=== PATIENT | female | born 1985 | race African-American/Black ===

== ENCOUNTER 2016-08-23 11:34 | Emergency (ER) | payer MEDICAID, OTHER ==
[2016-08-23 12:31] VITALS: BP 120/80
--- NOTE | 2016-08-23 12:37 | ER Document Report ---
ED Medical Screen (RME) - General Chief Complaint: Abdominal Pain Stated Complaint: STOMACH PAIN Time seen by provider: 12:36 Mode of Arrival: Ambulatory Information source: Patient Notes: 31-year-old female that is 5 weeks LMP 07/17/2016 is complaining of left flank and left lower quadrant abdominal pain. She had a test confirmed last week at a doctor's office. No vaginal bleeding. No dysuria frequency or urgency. TRAVEL OUTSIDE OF THE [place] IN LAST 30 DAYS: No - Related Data Allergies/Adverse Reactions: latex Allergy (Verified 08/23/16 11:45) Past Medical History Pulmonary Medical History: Reports: Hx Asthma Renal/ Medical History: Denies: Hx Peritoneal Dialysis Past Surgical History: Reports: Hx Orthopedic Surgery - bilat feet tendon & bone correction - Immunizations Hx Diphtheria, Pertussis, Tetanus Vaccination: Yes - 2014 Physical Exam - Vital signs Vitals: Temp Pulse Resp BP Pulse Ox 98.3 F 82 16 120/80 100 08/23/16 11:46 08/23/16 11:46 08/23/16 11:46 08/23/16 11:46 08/23/16 11:46 Course - Vital Signs Vital signs: Temp Pulse Resp BP Pulse Ox 98.3 F 82 16 120/80 100 08/23/16 11:46 08/23/16 11:46 08/23/16 11:46 08/23/16 11:46 08/23/16 11:46
[2016-08-23 13:18] LABS: APPEARANCE,URINE CLEAR; BILIRUBIN,URINE NEGATIVE (NEGATIVE); GLUCOSE, URINE 50 mg/dL (NEGATIVE); KETONES,URINE NEGATIVE (NEGATIVE); LEUKOCYTE ESTERASE,URINE NEGATIVE (NEGATIVE); NITRITE,URINE NEGATIVE (NEGATIVE); PROTEIN,URINE NEGATIVE (NEGATIVE); URINE SPECIFIC GRAVITY 1.024; UROBILINOGEN,URINE NEGATIVE mg/dL (<2.0)
--- NOTE | 2016-08-23 22:26 | ER Document Report ---
ED General - General Chief Complaint: Abdominal Pain Stated Complaint: STOMACH PAIN Mode of Arrival: Ambulatory Information source: Patient Notes: 31-year-old female 2 para 1 who is about 5 weeks presents with complaints of diarrhea. Patient notes symptoms have been ongoing intermittently for the past 3 days since eating [place] food. Patient denies any fevers or chills denies any nausea vomiting TRAVEL OUTSIDE OF THE [place] IN LAST 30 DAYS: No - HPI Onset: Other - 2 three-day duration Onset/Duration: Intermittent Quality of pain: Cramping Severity: Mild Pain Level: 1 Associated symptoms: Diarrhea Exacerbated by: Denies Relieved by: Denies Similar symptoms previously: No Recently seen / treated by doctor: No - Related Data Allergies/Adverse Reactions: latex Allergy (Verified 08/23/16 11:45) Past Medical History - General Information source: Patient - Social History Smoking Status: Never Smoker Cigarette use (# per day): No Chew tobacco use (# tins/day): No Smoking Education Provided: No Family History: Reviewed & Not Pertinent, Hypertension, Other - kidney disease Patient has suicidal ideation: No Patient has homicidal ideation: No Pulmonary Medical History: Reports: Hx Asthma Renal/ Medical History: Denies: Hx Peritoneal Dialysis Past Surgical History: Reports: Hx Orthopedic Surgery - bilat feet tendon & bone correction - Immunizations Hx Diphtheria, Pertussis, Tetanus Vaccination: Yes - 2014 Review of Systems - Review of Systems Notes: REVIEW OF SYSTEMS: CONSTITUTIONAL : Denies fever, chills, or sweats. Denies recent illness. EENT: Denies eye, ear, throat, or mouth pain or symptoms. Denies nasal or sinus congestion or discharge. Denies throat, tongue, or mouth swelling or difficulty swallowing. CARDIOVASCULAR: Denies chest pain. Denies palpitations or racing or irregular heart beat. Denies ankle edema. RESPIRATORY: Denies cough, cold, or chest congestion. Denies shortness of breath, difficulty breathing, or wheezing. GASTROINTESTINAL: Admits to diarrhea GENITOURINARY: Denies difficulty urinating, painful urination, burning, frequency, blood in urine, or discharge. FEMALE GENITOURINARY: Denies vaginal bleeding, heavy or abnormal periods, irregular periods. Denies vaginal discharge or odor. MUSCULOSKELETAL: Denies back or neck pain or stiffness. Denies joint pain or swelling. SKIN: Denies rash, lesions or sores. HEMATOLOGIC : Denies easy bruising or bleeding. LYMPHATIC: Denies swollen, enlarged glands. NEUROLOGICAL: Denies confusion or altered mental status. Denies passing out or loss of consciousness. Denies dizziness or lightheadedness. Denies headache. Denies weakness or paralysis or loss of use of either side. Denies problems with gait or speech. Denies sensory loss, numbness, or tingling. Denies seizures. PSYCHIATRIC: Denies anxiety or stress. Denies depression, suicidal ideation, or homicidal ideation. ALL OTHER SYSTEMS REVIEWED AND NEGATIVE. Dictation was performed using [employer] recognition software PHYSICAL EXAMINATION: GENERAL: Well-appearing, well-nourished and in no acute distress. HEAD: Atraumatic, normocephalic. EYES: Pupils equal round and reactive to light, extraocular movements intact, conjunctiva are normal. ENT: Nares patent, oropharynx clear without exudates. Moist mucous membranes. NECK: Normal range of motion, supple without lymphadenopathy LUNGS: Breath sounds clear to auscultation bilaterally and equal. No wheezes rales or rhonchi. HEART: Regular rate and rhythm without murmurs ABDOMEN: Soft, nontender, nondistended abdomen. No guarding, no rebound. No masses appreciated. Female : deferred Musculoskeletal: Normal range of motion, no pitting or edema. No cyanosis. NEUROLOGICAL: Cranial nerves grossly intact. Normal speech, normal gait. Normal sensory, motor exams PSYCH: Normal mood, normal affect. SKIN: Warm, Dry, normal turgor, no rashes or lesions noted. Physical Exam - Vital signs Vitals: Temp Pulse Resp BP Pulse Ox 98.3 F 82 16 120/80 100 08/23/16 11:46 08/23/16 11:46 08/23/16 11:46 08/23/16 11:46 08/23/16 11:46 Course - Re-evaluation Re-evalutation: 08/23/16 23:09 Ultrasound noted a 5 week 4 day , this would be consistent with the patient's presentation. Given that she does not have any vaginal bleeding or discharge or nausea vomiting and urinalysis notes no infection I believe she is stable for discharge patient is very happy with this plan After performing a Medical Screening Examination, I estimate there is LOW risk for ACUTE APPENDICITIS, BOWEL OBSTRUCTION, ACUTE CHOLECYSTITIS, PERFORATED DIVERTICULITIS, INCARCERATED HERNIA, PANCREATITIS, PELVIC INFLAMMATORY DISEASE, PERFORATED ULCER, ECTOPIC , or TUBO-OVARIAN ABSCESS, thus I consider the discharge disposition reasonable. Also, there is no evidence or peritonitis , sepsis, or toxicity. I have reevaluated this patient multiple times and no significant life threatening changes are noted. The patient and I have discussed the diagnosis and risks, and we agree with discharging home with close follow-up with the understanding that symptoms and presentations can change. We also discussed returning to the Emergency Department immediately if new or worsening symptoms occur. We have discussed the symptoms which are most concerning (e.g., bloody stool, fever, changing or worsening pain, vomiting) that necessitate immediate return. - Vital Signs Vital signs: Temp Pulse Resp BP Pulse Ox 98.3 F 82 16 120/80 100 08/23/16 11:46 08/23/16 11:46 08/23/16 11:46 08/23/16 11:46 08/23/16 11:46 - Laboratory Laboratory results interpreted by me: 08/23/16 08/23/16 12:48 12:48 Beta HCG, Quant 4322.70 H Urine Glucose (UA) 50 H Urine Ascorbic Acid 20 H - Diagnostic Test Radiology reviewed: Image reviewed, Reports reviewed - Five-week patient given report Discharge - Discharge Clinical Impression: Diarrhea Qualifiers: Diarrhea type: unspecified type Qualified Code(s): R19.7 - Diarrhea, unspecified Qualifiers: Weeks of gestation: less than 8 weeks Qualified Code(s): Z3A.01 - Less than 8 weeks gestation of Condition: Stable Disposition: HOME, SELF-CARE Instructions: Diarrhea, Nonspecific ([facility]) Referrals: SOWMYA RODRÍGUEZ PA-C [Primary Care Provider] - Follow up tomorrow
== END 2016-08-23 22:44 | disposition home or self-care (01) ==
LOC: ER 11:34
DX: O26.891 Other specified pregnancy related conditions, first trimester (principal); R19.7 Diarrhea, unspecified; O99.511 Diseases of the respiratory system complicating pregnancy, first trimester; J45.909 Unspecified asthma, uncomplicated; Z3A.01 Less than 8 weeks gestation of pregnancy; Z91.040 Latex allergy status
CPT/HCPCS: 36415; 76817; 81001; 84702; 86900; 86901; 87086; 93976; 99284

== ENCOUNTER → 2016-09-06 | Outpatient (CLI) | payer MEDICAID ==
[2016-09-06 12:01] LABS: APPEARANCE,URINE CLEAR; BILIRUBIN,URINE NEGATIVE (NEGATIVE); GLUCOSE, URINE 150 mg/dL (NEGATIVE); KETONES,URINE NEGATIVE (NEGATIVE); LEUKOCYTE ESTERASE,URINE NEGATIVE (NEGATIVE); NITRITE,URINE NEGATIVE (NEGATIVE); PROTEIN,URINE NEGATIVE (NEGATIVE); URINE SPECIFIC GRAVITY 1.024; UROBILINOGEN,URINE NEGATIVE mg/dL (<2.0)
[2016-09-06 12:21] LABS: ANION GAP 9 (5-19); BLOOD UREA NITROGEN 13 mg/dL (7-20); CALCIUM 9.3 mg/dL (8.4-10.2); CARBON DIOXIDE 25 mmol/L (22-30); CHLORIDE 103 mmol/L (98-107); CREATININE RESULT 0.62 mg/dL (0.52-1.25); GLUCOSE 82 mg/dL (75-110); POTASSIUM 4.3 mmol/L (3.6-5.0); SODIUM 136.5 mmol/L (137-145)
== END ==
LOC: OD 11:06
PROVIDERS: ATTEND Internal Medicine Nephrology
DX: Q61.3 Polycystic kidney, unspecified (principal)
CPT/HCPCS: 36415; 80048; 81001

== ENCOUNTER 2017-04-16 22:46 | Inpatient (IN) | payer MEDICAID ==
[2017-04-16] MEDS ORDERED: LIDOCAINE 1% INJ-PF (10 MG/ML) 30 ML SDV ONE (23:05)
[2017-04-16] MEDS ORDERED: GLYCERIN/WITCH HAZEL LEAF 1 EACH MED..PAD TP PRN (23:43)
[2017-04-16] MEDS ORDERED: OXYTOCIN IV PRN (23:43)
[2017-04-16] MEDS ORDERED: PSEUDOEPHEDRINE HCL 30 MG TABLET PO PRN (23:43)
[2017-04-16] MEDS ORDERED: DIBUCAINE 1% OINTMENT 28 GM TP PRN (23:43)
[2017-04-16] MEDS ORDERED: DIPH/PERTUSS(ACELL)/TETANUS VAC/PF 0.5 ML SYR (>=10YO) IM PRN (23:43)
[2017-04-16] MEDS ORDERED: NA PHOS,M-B/NA PHOS,DI-BA (ADULT) 133 ML ENEMA PR PRN (23:43)
[2017-04-16] MEDS ORDERED: ACETAMINOPHEN WITH CODEINE #3 TABLET PO PRN (23:43)
[2017-04-16] MEDS ORDERED: PROMETHAZINE HCL 25 MG TABLET PO PRN (23:43)
[2017-04-16] MEDS ORDERED: DIPHENHYDRAMINE HCL 25 MG CAPSULE PO PRN (23:43)
[2017-04-16] MEDS ORDERED: BENZOCAINE/MENTHOL AEROSOL SPRAY 56 ML TOP PRN (23:43)
[2017-04-16] MEDS ORDERED: ZOLPIDEM TARTRATE 5 MG TABLET PO PRN (23:43)
[2017-04-16] MEDS ORDERED: MAGNESIUM HYDROXIDE SUSP 30 ML UDCUP PO PRN (23:43)
[2017-04-16] MEDS ORDERED: PROMETHAZINE HCL 25 MG SUPP.RECT PR PRN (23:43)
[2017-04-16] MEDS ORDERED: ACETAMINOPHEN 650 MG SUPP.RECT PR PRN (23:43)
[2017-04-16] MEDS ORDERED: MEASLES,MUMPS&RUBELLA VACC/PF 0.5 ML VIAL SUBCUT PRN (23:43)
[2017-04-16] MEDS ORDERED: PROMETHAZINE HCL INJ 25 MG/1 ML VIAL IV PRN (23:43)
[2017-04-16] MEDS ORDERED: NORMAL SALINE IV PRN (23:43)
[2017-04-17 00:08] LABS: ABSOLUTE EOSINOPHILS # (AUTO) 0.2 10^3/uL (0.0-0.6); ABSOLUTE LYMPHOCYTES (AUTO) 2.8 10^3/uL (0.5-4.7); ABSOLUTE MONOCYTES (AUTO) 0.8 10^3/uL (0.1-1.4); ABSOLUTE NEUT (AUTO) 8.1 10^3/uL (1.7-8.2); BASOPHILS % (AUTO) 0.2 % (0-2); EOSINOPHILS % (AUTO) 1.7 % (0-6); HEMATOCRIT 39.4 % (36.0-47.0); LYMPHOCYTES % (AUTO) 23.2 % (13-45); MEAN CORPUSCULAR HEMOGLOBIN 27.5 pg (27.0-33.4); MEAN CORPUSCULAR HGB CONC 32.9 g/dL (32.0-36.0); MEAN CORPUSCULAR VOLUME 84 fl (80-97); MONOCYTES % (AUTO) 6.8 % (3-13); PLATELET COUNT 181 10^3/uL (150-450); RED BLOOD COUNT 4.72 10^6/uL (3.72-5.28); SEGMENTED NEUTROPHILS % (AUTO) 68.1 % (42-78); TOTAL CELLS COUNTED % (AUTO) 100 %; WHITE BLOOD COUNT 11.9 10^3/uL (4.0-10.5)
--- NOTE | 2017-04-17 01:20 | Admission Physical ---
Datetime Report Generated by CPN: 04/17/2017 01:20 ALLERGIES Medication Allergies: No Medication Allergies: latex (08/23/2016) Latex: Latex Allergies OBSTETRICAL HISTORY EDC: 04/23/2017 00:00 : 4 Para: 1 Term: 1 : 0 SAB: 1 IAB: 1 Ectopic: 0 Livin Cesareans: 0 VBACs: 0 Multiple Births: 0 Gestational Diabetes: No Rh Sensitization: No Incompetent Cervix: No ODETTE: No Infertility: No ART Treatment: No Uterine Anomaly: No IUGR: No Hx Previous C/S: No Macrosomia: No Hx Loss/Stillborn: No PIH: No Hx : No Placenta Previa/Abruption: No Depression/PP Depression: No PTL/PROM: No Post Hemorrhage: No Obstetrical History Comments: G1: 2004 EAB G2: 2005 SAB G3: 38 week 7 lb 12 oz G4: Current SEE RECORDS Alcohol: No Marijuana : No Cocaine: No Other Illicit Drugs: No Cigarettes: Never Smoker. [id number] MEDICAL HISTORY Diabetes: No Blood Transfusion: No Pulmonary Disease (Asthma, TB): Yes Breast Disease: No Hypertension: No Skiagrapher Surgery: No Heart Disease: No Hosp/Surgery: Yes Autoimmune Disorder: No Anesthetic Complications: No Kidney Disease: No Abnormal Pap Smear: No Neuro/Epilepsy: Yes Psychiatric Disorders: No Other Medical Diseases: No Hepatitis/Liver Disease: No Significant Family History: No Varicosities/Phlebitis: No Trauma/Violence : No Thyroid Dysfunction: No Medical History Comments: polycystic kidney disease, asthma- albuterol PRN, bilateral foot corrective surgery 2009 INFECTIOUS HISTORY Gonorrhea: No Genital Herpes: No Chlamydia: No Tuberculosis: No Syphilis: No Hepatitis: No HIV/AIDS Exposure: No Rash or Viral Illness: No HPV: No PHYSICAL EXAM General: Normal HEENT: Normal Neurologic: Normal Thyroid: Normal Heart: Normal Lungs: Normal Back: Normal Abdomen: Normal Extremities: Normal DTRs: Normal Physical Exam Comments: 31 yo precipitious delivery at arrival to [facility] Placenta delivered spontaneous complete. There was a second degree vaginal laceration that was reparied. There was no bleeding, uterus was firm. Vital Signs: Reviewed PLANS FOR LABOR AND DELIVERY Labor and Delivery: None Pain Management: None Feeding Preference: Breast Benefit of Breast Feed Discussed: Yes Circumcision: Yes INFORMED CONSENT Signature: with User ID: [email or web address]
[2017-04-17] MEDS: ACETAMINOPHEN WITH CODEINE #3 TABLET PO PRN (04:31)
[2017-04-17] MEDS ORDERED: IBUPROFEN 800 MG TABLET PO SCH (06:00)
[2017-04-17 07:06] LABS: HEMATOCRIT 36.3 % (36.0-47.0); HEMOGLOBIN 11.8 g/dL (12.0-15.5); MEAN CORPUSCULAR HEMOGLOBIN 27.4 pg (27.0-33.4); MEAN CORPUSCULAR HGB CONC 32.5 g/dL (32.0-36.0); MEAN CORPUSCULAR VOLUME 85 fl (80-97); PLATELET COUNT 166 10^3/uL (150-450); RED CELL DISTRIBUTION WIDTH 14.3 % (11.5-14.0); WHITE BLOOD COUNT 12.9 10^3/uL (4.0-10.5)
--- NOTE | 2017-04-17 09:39 | PDOC PROGRESS REPORT ---
Subjective-OB Subjective: Post Delivery Day: 31 year old. Denies any needs at this time. reports without difficulty, tolerating diet, pain controlled with current meds, bleeding normal. Reports bleeding was heavier overnight but not now. Physical Exam (OB) Vital Signs: Temp Pulse Resp BP Pulse Ox 97.7 F 77 15 130/64 H 98 04/17/17 09:00 04/17/17 09:00 04/17/17 09:00 04/17/17 09:00 04/17/17 09:00 Intake & Output 04/16/17 04/17/17 04/18/17 06:59 06:59 06:59 Intake Total 500 Balance 500 Weight 68 kg - Abdomen Description: Soft, Round Hernia Present: No Fundal Description: Firm, Midline Fundal Height: u/u - u/2 - Extremities Lower extremities: Essie's sign - neg Calf: Normal, Nontender Objective-Diagnostic Laboratory: 04/17/17 06:46 04/16/17 04/16/17 04/17/17 22:49 22:49 06:46 WBC 11.9 H 12.9 H RBC 4.72 4.30 Hgb 13.0 11.8 L Hct 39.4 36.3 MCV 84 85 MCH 27.5 27.4 MCHC 32.9 32.5 RDW 14.0 14.3 H Plt Count 181 166 Seg Neutrophils % 68.1 Lymphocytes % 23.2 Monocytes % 6.8 Eosinophils % 1.7 Basophils % 0.2 Absolute Neutrophils 8.1 Absolute Lymphocytes 2.8 Absolute Monocytes 0.8 Absolute Eosinophils 0.2 Absolute Basophils 0.0 Blood Type O POSITIVE Antibody Screen NEGATIVE Assessment and Plan(PN) - Time Spent with Patient Time with patient: Less than 15 minutes Medications reviewed and adjusted accordingly: Yes - Disposition Anticipated Discharge: Home Within: within 24 hours
[2017-04-17] MEDS: DOCUSATE SODIUM 100 MG CAPSULE PO SCH ×2 (09:53→18:58)
[2017-04-17] MEDS: SENNOSIDES/DOCUSATE 8.6-50 MG 1 EACH TABLET PO SCH (09:53)
[2017-04-17] MEDS: FAMOTIDINE 20 MG TABLET PO SCH ×2 (09:53→23:47)
[2017-04-17] MEDS: FERROUS SULFATE 325 MG TABLET PO SCH ×2 (09:54→18:58)
[2017-04-17] MEDS: PRENATAL VITAMIN W DHA CAPSULE PO SCH (09:56)
[2017-04-18 08:17] VITALS: BP 131/72
[2017-04-18] MEDS: ACETAMINOPHEN WITH CODEINE #3 TABLET PO PRN (08:22)
--- NOTE | 2017-04-18 09:19 | PDOC DISCHARGE SUMMARY ---
Final Diagnosis Discharge Date: 04/18/17 - Final Diagnosis (1) Vaginal delivery Is this a current diagnosis for this admission?: Yes Discharge Data - Discharge Medication Home Medications: Albuterol Sulfate [Albuterol Sulfate Hfa] 8.5 gm IH ASDIR PRN 05/11/13 Vits96/Iron Fum/Folic [ Tablet] 1 each PO DAILY 11/29/14 Acetaminophen [Tylenol 650 mg Supp] 650 mg PO Q4HP PRN supp.rect 04/18/17 - Diagnosis Test Laboratory: Temp Pulse Resp BP Pulse Ox 98.4 F 81 18 131/72 H 99 04/18/17 08:16 04/18/17 08:16 04/18/17 08:16 04/18/17 08:16 04/18/17 08:16 04/16/17 04/17/17 22:49 06:46 RBC 4.72 4.30 Hgb 13.0 11.8 L Hct 39.4 36.3 - Discharge information/Instructions Discharge Activity: Balance Activity w/Rest, Pelvic Rest Discharge Diet: Regular Disposition: HOME, SELF-CARE Follow up with: [facility] in: 4, Weeks
[2017-04-18] MEDS: DOCUSATE SODIUM 100 MG CAPSULE PO SCH (10:13)
[2017-04-18] MEDS: SENNOSIDES/DOCUSATE 8.6-50 MG 1 EACH TABLET PO SCH (10:14)
[2017-04-18] MEDS: PRENATAL VITAMIN W DHA CAPSULE PO SCH (10:14)
[2017-04-18] MEDS: FERROUS SULFATE 325 MG TABLET PO SCH (10:14)
[2017-04-18] MEDS: FAMOTIDINE 20 MG TABLET PO SCH (11:19)
--- NOTE | 2017-04-29 10:54 | Delivery Summary ---
Del Sum A-C Datetime Report Generated by CPN: 04/29/2017 10:54 DELIVERY PERSONNEL DELIVERY PERSONNEL: [id number] Labor and Delivery Nurse:: Ina Ontiveros RNbottle filler Nurse:: Hoda López RN Freight Agent:: Sharmaine Melo RN Nursery Nurse:: Mariam Carey RN Nursery Nurse:: Juliette Perrin RN Conveyancer/ALODIZE MACHINE HELPER: Tessa Pope, Additional Personnel: : Emilee Medina RN MATERNAL INFORMATION Delivery Anesthesia: None Medications After Delivery: Pitocin Bolus-Please Comment Meds After Delivery Comment: 20 units pitocin after placenta delivery Estimated Blood Loss (ml): 300 Maternal Complications: Precipitous Labor (<3hrs) Other Maternal Complications: Precipitous vaginal delivery with placenta LABOR SUMMARY EDC: 04/23/2017 00:00 No. Babies in Womb: 1 Attempted: No Labor Anesthesia: None LABOR INFORMATION Reason for Induction: Not Applicable Onset of Labor: 04/16/2017 20:00 Complete Dilatation: 04/16/2017 22:32 Oxytocin: N/A Group B Beta Strep: negative Steroids Given: None Reason Steroids Not Administered: Not Applicable MEMBRANES Membranes Rupture Method: Spontaneous Rupture of Membranes: 04/16/2017 22:47 Length of Rupture (hr): 0.12 Amniotic Fluid Color: Clear Amniotic Fluid Amount: Moderate STAGES OF LABOR Stage 1 hr: 2 Stage 1 min: 32 Stage 2 hr: 0 Stage 2 min: 22 Stage 3 hr: 0 Stage 3 min: 4 Total Time in Labor hr: 2 Total Time in Labor min: 58 VAGINAL DELIVERY Laceration #1: Vaginal Laceration Extension #1: Second Degree Laceration Repair: Yes Laceration Repair Note: Midline second degree vaginal laceration repaired with 3-0 Chromic CSECTION DELIVERY Primary Indication: N/A Secondary Indication: N/A CSection Incidence: N/A Labor: N/A Elective: N/A CSection Incision: N/A BABY A INFORMATION Infant Delivery Date/Time: 04/16/2017 22:54 Method of Delivery: Vaginal Born in Route : No : N/A Forceps: N/A Vacuum Extraction: N/A Shoulder Dystocia : No PRESENTATION/POSITION BABY A Presentation: Cephalic Cephalic Presentation: Vertex Vertex Position: Right Occipital Anterior Breech Presentation: N/A PLACENTA INFORMATION BABY A Placenta Delivery Time : 04/16/2017 22:58 Placenta Method of Delivery: Spontaneous Placenta Status: Delivered SCORES BABY A Heart Rate 1 min: >100 bpm Resp Effort 1 min: Good Cry Reflex Irritability 1 min: Cough or Sneeze or Pulls Away Muscle Tone 1 min: Active Motion Color 1 min: Body [place], Extremities Blue Resuscitation Effort 1 min: Tactile Stimulation SCORE 1 MIN: 9 Heart Rate 5 min: >100 bpm Resp Effort 5 min: Good Cry Reflex Irritability 5 min: Cough or Sneeze or Pulls Away Muscle Tone 5 min: Active Motion Color 5 min: Body [place], Extremities Blue SCORE 5 MIN: 9 INFANT INFORMATION BABY A Gestational Age at Delivery: 39.0 Gestational Status: Full Term- 39- 40.6 Weeks Infant Outcome : Liveborn Condition : Stable Infant Sex: Male Sex: Male IDENTIFICATION BABY A Verification Date/Time: 04/16/2017 23:03 ID Band Number: [id number] Mother's Name Verified: Yes RN Verifying : Jr Burr, RN Additional Verifying Personnel: Sharmaine Melo, RN WEIGHT/LENGTH BABY A Infant Birthweight (gm): 3460 Infant Weight (lb): 7 Weight (oz): 10 Infant Length (in): 19.00 Length (cm): 48.26 CORD INFORMATION BABY A No. Cord Vessels: 3 Nuchal Cord : N/A Cord Blood Taken: Yes-For Storage (Mom's Blood type +) Infant Suction: None ASSESSMENT BABY A Complications: None Physical Findings at Delivery: Within Normal Limits Infant Respirations: Appears Normal Skin to Skin: Yes Skin to Skin Time (min): 60 Shipping Support/ALS Called : No Infant Care By: Gautam Perrin RN SIGNATURES Signature: with User ID: [email or web address] : I was personally available for consultation and serving as supervising physician for the MLP. : I was personally available for consultation and serving as supervising physician for the MLP.
== END 2017-04-18 11:05 | disposition home or self-care (01) | DRG 775 ==
LOC: LC 22:46 → LR 22:52 → 2S 04-17 01:18
PROVIDERS: ADMIT Obstetrics & Gynecology; ATTEND Obstetrics & Gynecology
PROC: 10E0XZZ Delivery of Products of Conception, External Approach (ICD-10-PCS; principal; 2017-04-16)
PROC: 0KQM0ZZ Repair Perineum Muscle, Open Approach (ICD-10-PCS; 2017-04-16)
DX: O62.3 Precipitate labor (principal); O99.52 Diseases of the respiratory system complicating childbirth; O70.1 Second degree perineal laceration during delivery; J45.909 Unspecified asthma, uncomplicated; Z37.0 Single live birth; Z3A.00 Weeks of gestation of pregnancy not specified; Z3A.39 39 weeks gestation of pregnancy
CPT/HCPCS: 36415; 85025; 85027; 86592; 86850; 86900; 86901; J3490

== ENCOUNTER → 2017-12-02 | Outpatient (CLI) | payer MEDICAID ==
--- NOTE | 2017-12-02 14:29 | RADIOLOGY REPORT (SQ) ---
EXAM DESCRIPTION: KNEE RIGHT 3 VIEWS COMPLETED DATE/TIME: 12/02/2017 2:20 pm REASON FOR STUDY: PAIN IN RIGHT KNEE M25.561 PAIN IN RIGHT KNEE COMPARISON: None. NUMBER OF VIEWS: Three views. TECHNIQUE: AP, lateral, and sunrise patella radiographic images acquired of the right knee. LIMITATIONS: None. FINDINGS: MINERALIZATION: Normal. BONES: No acute fracture or dislocation. No worrisome bone lesions. No significant osteophytes. JOINT: No effusion. No chondrocalcinosis. OTHER: No other significant finding. IMPRESSION: NEGATIVE STUDY OF THE RIGHT KNEE. NO EXPLANATION FOR PAIN. TECHNICAL DOCUMENTATION: JOB ID: [id number] [employer] All Rights Reserved Reading location - IP/workstation name: [email or web address]
== END ==
LOC: OD 13:52
PROVIDERS: ATTEND Nurse Practitioner Acute Care
DX: M25.561 Pain in right knee (principal)

== ENCOUNTER → 2018-06-02 | Outpatient (CLI) | payer MEDICAID ==
[2018-06-02 12:37] LABS: ABSOLUTE EOSINOPHILS # (AUTO) 0.3 10^3/uL (0.0-0.6); ABSOLUTE LYMPHOCYTES (AUTO) 1.8 10^3/uL (0.5-4.7); ABSOLUTE MONOCYTES (AUTO) 0.5 10^3/uL (0.1-1.4); ABSOLUTE NEUT (AUTO) 5.6 10^3/uL (1.7-8.2); BASOPHILS % (AUTO) 0.5 % (0-2); EOSINOPHILS % (AUTO) 3.8 % (0-6); HEMATOCRIT 36.6 % (36.0-47.0); HEMOGLOBIN 12.4 g/dL (12.0-15.5); LYMPHOCYTES % (AUTO) 21.3 % (13-45); MEAN CORPUSCULAR HEMOGLOBIN 28.2 pg (27.0-33.4); MEAN CORPUSCULAR HGB CONC 33.9 g/dL (32.0-36.0); MEAN CORPUSCULAR VOLUME 83 fl (80-97); MONOCYTES % (AUTO) 6.6 % (3-13); PLATELET COUNT 240 10^3/uL (150-450); RED CELL DISTRIBUTION WIDTH 13.7 % (11.5-14.0); SEGMENTED NEUTROPHILS % (AUTO) 67.8 % (42-78); TOTAL CELLS COUNTED % (AUTO) 100 %; WHITE BLOOD COUNT 8.2 10^3/uL (4.0-10.5)
[2018-06-02 13:00] LABS: ALANINE AMINOTRANSFERASE 17 U/L (9-52); ALKALINE PHOSPHATASE 51 U/L (38-126); ANION GAP 8 (5-19); ASPARTATE AMINO TRANSFERASE 18 U/L (14-36); BILIRUBIN,DIRECT 0.2 mg/dL (0.0-0.4); BILIRUBIN,TOTAL 0.3 mg/dL (0.2-1.3); BLOOD UREA NITROGEN 16 mg/dL (7-20); CARBON DIOXIDE 28 mmol/L (22-30); CHLORIDE 104 mmol/L (98-107); GLUCOSE 84 mg/dL (75-110); POTASSIUM 4.5 mmol/L (3.6-5.0)
== END ==
LOC: OD 11:47
PROVIDERS: ATTEND Nurse Practitioner Acute Care
DX: R10.9 Unspecified abdominal pain (principal)
CPT/HCPCS: 36415; 80053; 85025

== ENCOUNTER → 2018-12-02 | Outpatient (CLI) | payer OTHER, MEDICAID ==
[2018-12-02 11:43] LABS: APPEARANCE,URINE CLEAR; BILIRUBIN,URINE NEGATIVE (NEGATIVE); COLOR,URINE YELLOW; GLUCOSE, URINE NEGATIVE (NEGATIVE); KETONES,URINE NEGATIVE (NEGATIVE); LEUKOCYTE ESTERASE,URINE NEGATIVE (NEGATIVE); NITRITE,URINE NEGATIVE (NEGATIVE); PROTEIN,URINE NEGATIVE (NEGATIVE); URINE SPECIFIC GRAVITY 1.023; UROBILINOGEN,URINE NEGATIVE mg/dL (<2.0)
[2018-12-02 11:58] LABS: ANION GAP 8 (5-19); BLOOD UREA NITROGEN 18 mg/dL (7-20); CALCIUM 9.1 mg/dL (8.4-10.2); CARBON DIOXIDE 29 mmol/L (22-30); CHLORIDE 102 mmol/L (98-107); GLUCOSE 87 mg/dL (75-110); POTASSIUM 4.2 mmol/L (3.6-5.0)
[2018-12-04 02:36] LABS: MICROALBUMIN URINE 7.6 ug/mL (Not Estab.)
== END ==
LOC: OD 09:55
PROVIDERS: ATTEND Internal Medicine Nephrology
DX: N18.1 Chronic kidney disease, stage 1 (principal); R10.9 Unspecified abdominal pain
CPT/HCPCS: 36415; 80048; 81001; 82043; 82570

== ENCOUNTER 2019-01-12 22:11 | Emergency (ER) | payer OTHER, MEDICAID ==
--- NOTE | 2019-01-12 23:08 | RADIOLOGY REPORT (SQ) ---
EXAM DESCRIPTION: XR TOES 2 OR MORE VIEWS COMPLETED DATE/TME: 01/12/2019 00:00 CLINICAL HISTORY: 33 years, Female, left 5th toe injury, struck toe on furniture. COMPARISON: None. NUMBER OF VIEWS: 3 TECHNIQUE: 3 views of the left fifth toe LIMITATIONS: None. FINDINGS: Obliquely oriented fracture of the proximal phalanx of the fifth digit. Soft tissue swelling. Flexed position of the IP joint without definitive dislocation. There is some equivocal subluxation of the distal phalanx IMPRESSION: Obliquely oriented fracture of the proximal phalanx. Equivocal subluxation of the distal phalanx as above copyright 2010 [employer]- All Rights Reserved
[2019-01-12] MEDS ORDERED: HYDROCODONE/ACETAMINOPHEN 5-325 MG TABLET PO ONE (23:23)
--- NOTE | 2019-01-12 23:24 | ER Document Report ---
ED General - General Chief Complaint: Toe Injury Stated Complaint: LEFT 5TH TOE INJURY Time Seen by Provider: 01/12/19 23:22 Primary Care Provider: WILMAR HOUSTON JR, DO [ACTIVE PROVISIONAL STAFF] - Follow up in 3-5 days TRAVEL OUTSIDE OF THE [place] IN LAST 30 DAYS: No - HPI Notes: 33-year-old female to the emergency department with complaints of left pinky toe pain and deformity that occurred just prior to arrival. States that she was walking in her home when she accidentally stepped her toe on a high touch. States that she has had pain since. She denies any other injuries. - Related Data Allergies/Adverse Reactions: latex Allergy (Verified 08/23/16 11:45) Past Medical History - General Information source: Patient - Social History Smoking Status: Never Smoker Frequency of alcohol use: None Drug Abuse: None Lives with: Spouse/Significant other Family History: Reviewed & Not Pertinent, Hypertension, Other - kidney disease Pulmonary Medical History: Reports: Hx Asthma Renal/ Medical History: Denies: Hx Peritoneal Dialysis Past Surgical History: Reports: Hx Orthopedic Surgery - bilat feet tendon & bone correction - Immunizations Hx Diphtheria, Pertussis, Tetanus Vaccination: Yes - 2014 Review of Systems - Review of Systems Constitutional: denies: Chills, Fever EENT: No symptoms reported Cardiovascular: denies: Chest pain, Palpitations, Heart racing, Orthopnea, Dyspnea, Syncope, Dizziness, Lightheaded, Edema Respiratory: denies: Cough, Short of breath Gastrointestinal: denies: Abdominal pain, Diarrhea, Nausea, Vomiting Musculoskeletal: See HPI, Joint pain, Joint swelling Skin: No symptoms reported -: Yes All other systems reviewed and negative Physical Exam - Vital signs Vitals: Temp Pulse Resp BP Pulse Ox 97.7 F 76 17 139/62 H 98 01/12/19 22:16 01/12/19 22:16 01/12/19 22:16 01/12/19 22:16 01/12/19 22:16 Interpretation: Normal - General General appearance: Appears well, Alert - HEENT Head: Normocephalic, Atraumatic Eyes: Normal Pupils: PERRL - Respiratory Respiratory status: No respiratory distress Chest status: Nontender Breath sounds: Normal Chest palpation: Normal - Cardiovascular Rhythm: Regular Heart sounds: Normal auscultation Murmur: No - Extremities Foot: Tender Notes: To the left pinky toe there is noted edema and tenderness to palpation. The toe is slightly deformed. Cap refill is 2 seconds in all toes and patient can wiggle all toes except for the pinky finger of the left foot. She is nontender to palpation in all other toes. She has no tenderness to palpation in the forefoot midfoot and hindfoot of the left foot. She has no tenderness to palpation in the ankle on the left side. She has intact dorsi and plantar flexion against resistance with 5 out of 5 strength. DP pulses are intact and equal. There is mild evolving ecchymosis in the left pinky toe. - Neurological Neuro grossly intact: Yes Cognition: Normal Orientation: AAOx4 [place] Coma Scale Eye Opening: Spontaneous [place] Coma Scale Verbal: Oriented [place]do Coma Scale Motor: Obeys Commands [place] Coma Scale Total: 15 Speech: Normal Motor strength normal: LUE, RUE, LLE, RLE Sensory: Normal - Psychological Associated symptoms: Normal affect, Normal mood - Skin Skin Temperature: Warm Skin Moisture: Dry Skin Color: Normal Course - Re-evaluation Re-evalutation: Toe X-Ray 01/12/19 00:00 IMPRESSION: Obliquely oriented fracture of the proximal phalanx. Equivocal subluxation of the distal phalanx as above copyright 2011 [employer]- All Rights Reserved Impression: Left pinky toe fracture. We have armond taped the toe and placed in a postop shoe. We will go ahead and placed on crutches. We will have her follow with orthopedist. We will send home with pain medicine. Have encouraged rest, ice, elevation, and no weightbearing for right now. Patient and agree with the plan will discharge home. - Vital Signs Vital signs: Temp Pulse Resp BP Pulse Ox 97.7 F 96 20 136/62 H 99 01/13/19 00:05 01/13/19 00:05 01/13/19 00:05 01/13/19 00:05 01/13/19 00:05 - Diagnostic Test Radiology reviewed: Image reviewed, Reports reviewed Procedures - Immobilization Left Toe Pre-Proc Neuro Vasc Exam: Normal Immobilizer type: Other - Armond tape and postop shoe Performed by: Provider, RN Post-Proc Neuro Vasc Exam: Normal Alignment checked and good: Yes Discharge - Discharge Clinical Impression: Toe pain, left Toe fracture, left Qualifiers: Encounter type: initial encounter Toe: lesser toe Fracture type: closed Phalanx: middle Fracture alignment: displaced Qualified Code(s): S92.522A - Displaced fracture of middle phalanx of left lesser toe(s), initial encounter for closed fracture Condition: Stable Disposition: HOME, SELF-CARE Instructions: Fractured Toe ([facility]) Additional Instructions: NO WEIGHT BEARING. REST, ICE, ELEVATE. KEEP TOE SPLINTED. FOLLOW UP WITH ORTHOPEDIST. Prescriptions: Hydrocodone/Acetaminophen [Blackwell 5-325 mg Tablet] 1 tab PO Q6H #12 tablet Referrals: WILMAR HOUSTON JR, DO [ACTIVE PROVISIONAL STAFF] - Follow up in 3-5 days
[2019-01-13 00:10] VITALS: BP 136/62
== END 2019-01-13 00:10 | disposition home or self-care (01) ==
LOC: ER 22:11
DX: S92.522A Displaced fracture of middle phalanx of left lesser toe(s), initial encounter for closed fracture (principal); M79.645 Pain in left finger(s); W22.8XXA Striking against or struck by other objects, initial encounter; J45.909 Unspecified asthma, uncomplicated
CPT/HCPCS: 99283

== ENCOUNTER → 2019-04-30 | Outpatient (CLI) | payer MEDICAID, OTHER ==
--- NOTE | 2019-04-30 15:05 | RADIOLOGY REPORT (SQ) ---
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 TECHNIQUE: Dynamic and static grayscale images acquired of the kidneys and bladder and recorded on P ACS. Additional selected color Doppler and spectral images recorded. LIMITATIONS: None. FINDINGS: RIGHT KIDNEY: Mildly asymmetrically small measuring 11.3 cm. Normal echogenicity. No betsy d or suspicious masses. There are multiple cysts, largest measuring 1.9 cm. No hydronephrosis. No c alcifications. LEFT KIDNEY: Normal size measuring 13.2 cm. Normal echogenicity. No solid or suspicious masses. Mul tiple cysts, largest measuring 2.7 cm. No hydronephrosis. No calcifications. BLADDER: No masses. OTHER FINDINGS: Partially visualized gravid uterus. IMPRESSION: 1. No hydronephrosis. 2. Multiple bilateral renal cysts. 3. Partially visualized gravid uterus. TECHNICAL DOCUMENTATION: JOB ID: [id number] [employer]- All Rights Reserved Reading location - IP/workstation name: [email or web address]
== END ==
LOC: RAD 13:00
PROVIDERS: ATTEND Internal Medicine Nephrology
DX: Q61.2 Polycystic kidney, adult type (principal)
CPT/HCPCS: 76770